=== PATIENT | male | born 1945 | race Caucasian/White ===

== ENCOUNTER 2021-02-28 10:27 | Day surgery (SDC) | payer MEDICARE ==
[2021-02-28] MEDS ORDERED: Sodium Bicarbonate 2.5 MEQ/5 ML VIAL ONE (11:49)
[2021-02-28] MEDS ORDERED: Lidocaine 1% PF 5 ML VIAL ONE (11:49)
[2021-02-28 12:10] VITALS: BP 137/73; TEMP 97.8
== END 2021-02-28 12:30 | disposition home or self-care (01) ==
LOC: CSHULT 10:27
PROVIDERS: ATTEND Internal Medicine Hematology & Oncology
DX: R18.8 Other ascites (principal); C15.8 Malignant neoplasm of overlapping sites of esophagus; C48.2 Malignant neoplasm of peritoneum, unspecified
CPT/HCPCS: 49083